=== PATIENT | male | born 1975 | race Caucasian/White ===

== ENCOUNTER 2017-03-03 | Inpatient (IN) | payer OTHER ==
--- NOTE | ~2017-03-03 | PA ---
Unit #: [id number] #: [id number] Patient: MELODY MARINELLI [id number] [facility] [address] [place] [address] [id number] MR#: [id number] NAME: MELODY MARINELLI ROOM: P180 Age: 42 Sex: M Admission Date: 03/03/2017 : 1975 Date of Assessment: Attending Physician: Дмитрий Bashir M.D. Admitting Physician: Дмитрий Bashir M.D. PSYCHIATRIC ASSESSMENT INFORMANTS Patient, reliable; [facility], reliable. CHIEF COMPLAINT Alcohol detox. HISTORY OF PRESENT ILLNESS Mr. Marinelli is a 42-year-old man, who reports he is drinking a gallon of vodka daily for the past 6 months. He reported to have had a seizure in the ambulance, but he does not recall. He had a high CIWA score and was admitted for alcohol detox. PAST PSYCHIATRIC HISTORY No previous admissions to this facility, but one residential stay at the [facility]. He does not take any psychiatric medications. FAMILY PSYCHIATRIC HISTORY None reported. SOCIAL HISTORY The patient denied any history of childhood abuse or neglect. 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 He is temporarily homeless with financial difficulties. PAST MEDICAL HISTORY The patient recently had a withdrawal seizure, but has no chronic medical conditions. MEDICATIONS None currently. ALLERGIES No known medication allergies. SUBSTANCE USE HISTORY As noted above. MENTAL STATUS EXAMINATION Mr. Marinelli presented as a mildly disheveled man, who appeared his stated age. He was cooperative with the examination. His speech was spontaneous and easily understood. Musculoskeletal examination was calm. Mood was mildly anxious with a congruent affect. He was alert and fully oriented. Unit #: [id number] #: [id number] Patient: MELODY MARINELLI Memory was a little spotty for recent events, but otherwise intact and concentration was fair. Thought processes were logical with no psychosis. He denied suicidal or homicidal ideation. ASSETS AND LIABILITIES The patient is in general good health and employed. Liabilities include ongoing heavy alcohol use. ADMITTING DIAGNOSES AXIS I: Alcohol dependence with withdrawal, uncomplicated, F10.230. AXIS II: No diagnosis. AXIS III: None acute. AXIS IV: AXIS V: PSYCHIATRIC PLAN The patient was admitted and placed on alcohol detox protocol. A physical examination and laboratory studies will be ordered and reviewed. TREATMENT GOALS Establishment of sobriety, improvement in insight, and improvement in coping skills. DISCHARGE PLANNING Follow up with chemical dependence programing of his choice. ESTIMATED LENGTH OF STAY Five days. Dictated by... Дмитрий Bashir M.D. SHILPA/kana TD: 03/19/2017 13:25 JOB #: [id number] PSYCHIATRIC ASSESSMENT Page 1 of 1 X Дмитрий Bashir MD PSYCHIATRIC ASSESSMENT
--- NOTE | ~2017-03-03 | DS ---
Unit #: [id number] #: [id number] Patient: MELODY MARINELLI [id number] [facility] [address] [place] [address] [id number] MR#: [id number] NAME: MELODY MARINELLI ROOM: 80 Age: 42 Sex: M Admission Date: 03/03/2017 : 1975 Discharge Date: 03/05/2017 Attending Physician: Дмитрий Bashir M.D. DISCHARGE SUMMARY REASON FOR ADMISSION Mr. Marinelli is a 42-year-old man with a history of alcohol dependence, who was told by his work place that he had to get help in order to maintain employment. He was transferred from [facility] to [facility] for medical evaluation and apparently had a withdrawal seizure on the way. He now returns for alcohol detox. DIAGNOSTIC STUDIES LABORATORY RESULTS: Please see hospital chart. HOSPITAL COURSE The patient was admitted and placed on the alcohol detox protocol. He had no further seizure activities and no delirium, confusion, or disorientation during the hospitalization. He was able to contract for safety at the time of discharge. DISCHARGE DIAGNOSES AXIS I: Alcohol dependence with withdrawal, uncomplicated. AXIS II: No diagnosis. AXIS III: None acute. AXIS IV: AXIS V: DISCHARGE INSTRUCTIONS Follow up with the [facility]. DISCHARGE MEDICATIONS None. CONDITION AT DISCHARGE Fair. PROGNOSIS Fair. DIET AND ACTIVITY Ad samuel. Dictated by... Дмитрий Bashir M.D. Unit #: [id number] #: [id number] Patient: MELODY MARINELLI MRH/modl TD: 03/19/2017 06:14 JOB #: [id number] DISCHARGE SUMMARY Page 1 of 1 X Дмитрий Bashir MD X DISCHARGE SUMMARY
--- NOTE | ~2017-03-03 | HP ---
Unit #: [id number] #: [id number] Patient: HAM MARINELLI [id number] [place] [address] [id number] MR#: [id number] NAME: HAM MARINELLI ROOM: P180 Age: 42 Sex: M Admission Date: 03/03/2017 : 1975 Attending Physician: Дмитрий Bashir M.D. Admitting Physician: Дмитрий Bashir M.D. HISTORY AND PHYSICAL HISTORY OF PRESENT ILLNESS Ham is a 42 year old admitted to [facility] because of his abuse of alcohol. PAST MEDICAL HISTORY 1. Long history of alcohol abuse. 2. History of withdrawal seizures. PAST SURGICAL HISTORY Chest wall reconstruction. ALLERGIES No known drug allergies. SOCIAL HISTORY Smokes greater than 1 pack per day. Drinks half gallon plus on a daily basis and denies illicit drug use. FAMILY HISTORY Medically noncontributory. REVIEW OF SYSTEMS CONSTITUTIONAL: No fever or chills. HEENT: Denies any sore throat, ear pain or runny nose. CARDIOVASCULAR: Denies chest pain, irregular heart rhythm or palpitations. CHEST: Denies shortness of breath or cough. No hemoptysis. GASTROINTESTINAL: Denies nausea, vomiting, diarrhea or chronic constipation. ENDOCRINE: Denies history of increased thirst or urination. No recent significant weight loss or gain. GENITOURINARY: Denies dysuria, frequency, or hematuria. SKIN: He does report a laceration to his right elbow 3 days prior to admission. HEMATOLOGIC: Denies history of increased bleeding or bruising. MUSCULOSKELETAL: Denies any hot, swollen joints. No generalized muscle pain. NEUROLOGIC: Denies problems with vision or speech. No frequent, severe headaches. No numbness, tingling or weakness in any extremities. Denies loss of bladder or bowel control. CURRENT MEDICATIONS Detox protocol. Unit #: [id number] #: [id number] Patient: HAM MARINELLI PHYSICAL EXAMINATION GENERAL: Alert, well-nourished, in no apparent distress. VITAL SIGNS: Blood pressure 146/90, heart rate 80, respirations 16, temperature 98.6. WEIGHT: 180. HEIGHT: 5 feet 11 inches. SKIN: Warm and dry without rash. He has a significant laceration along his right elbow. There is small amount of pus, redness, swelling and heat noted. He has full range of motion in the elbow. HEENT: Normocephalic. TMs not viewed. Oral and nasal passages clear. Conjunctivae clear. PERRLA. EOMs intact. NECK: Supple without lymphadenopathy or thyromegaly. HEART: Regular rate and rhythm without murmur. LUNGS: Clear. ABDOMEN: Soft, nontender. : Not done. EXTREMITIES: No evidence of cyanosis, clubbing or edema. Moves all without focal deficit. NEUROLOGICAL: Grossly within normal limits. Cranial Nerves: II: Visual skinner are intact. III, IV AND : Extraocular movements are intact. Pupils are equal, round and reactive to light. V: Facial sensation is grossly normal. VII: Facial movements and expression are normal. VIII: Auditory acuity grossly intact. IX, X: Uvula is midline. Phonation is normal. XI: Patient shrugs shoulders and turns head normally. XII: Tongue protrudes in the midline. Sensory and Motor Function: Sensory and motor sensation is grossly normal. Motor: moves all extremities well. Coordination: Gait is normal. Deep Tendon Reflexes: Intact. IMPRESSION 1. Psychiatric admission. 2. History of alcohol abuse. 3. Cellulitis, right elbow. RECOMMENDATIONS PSYCHIATRIC: Per psychiatrist. MEDICAL: 1. See no contraindication to participate in facility's activities. 2. Detox per protocol. 3. Start Cleocin 300 mg 1 p.o. t.i.d. x7 days. MEDICAL PROGNOSIS Good. MEDICAL CONDITION Stable. Dictated by... Shagufta Lawson P.A.-C. for Elton Block/yonatan TD: 03/03/2017 19:42 Unit #: [id number] #: [id number] Patient: HAM MARINELLI JOB #: [id number] HISTORY AND PHYSICAL Page 1 of 1 X Shagufta Lawson HISTORY AND PHYSICAL
== END 2017-03-05 12:30 | DRG 897 ==
LOC: P1E 07:23
DX: F11.20 Opioid dependence, uncomplicated (principal)
CPT/HCPCS: 86592